=== PATIENT | male | born 2000 | race Caucasian/White ===

== ENCOUNTER 2024-07-15 20:45 | Emergency (ER) | payer OTHER ==
[2024-07-15 20:53] VITALS: BP 132/84; PULSE 55; RESP 20; TEMP 97.7; BMI 23.7
[2024-07-15] MEDS ORDERED: IBUPROFEN 600 MG TABLET (FP) PO ONE (21:39)
[2024-07-15] MEDS: IBUPROFEN 600 MG TABLET (FP) PO ONE (21:47)
== END 2024-07-15 22:12 | disposition home or self-care (01) ==
LOC: JERFT 20:45
DX: M79.671 Pain in right foot (principal); B07.0 Plantar wart
CPT/HCPCS: 73630-TC-RT-FY; 99283-25